=== PATIENT | female | born 1930 | race Caucasian/White ===

== ENCOUNTER 2017-01-15 08:30 | Observation (INO) | payer MEDICARE, OTHER ==
[~2017-01-15] VITALS: Ht 148.6 cm; Wt 63.8 kg
[~2017-01-15 08:30] MED LIST: ALEN1TAB48 PO; AMLO2.5T PO; ASPI1TAB69 PO; ATEN25TA PO; CALC1TAB16 PO; CALC1TAB87 PO; COQ1400C PO; FISHCAP4 PO; FLUT50SP EACH NARE; IBUP200C PO; LEVO75TA3 PO; MULT1TAB84 PO; NITR1CAP37 PO; OMEP20TA PO; ROSU40 PO; SUSTANE EACH EYE; VALS1TAB70 PO; VITA500030 CHEW; ZYRT10CA PO
[2017-01-15 08:35] VITALS: BP 116/55; PULSE 106; RESP 19; TEMP 99.3; O2SAT 98
[2017-01-15] MEDS ORDERED: SODIUM CHLORID 0.9% 500 ML INJ 500 ML IV ONE (08:45)
[2017-01-15] MEDS ORDERED: SODIUM CHLORIDE 0.9% FLUSH 10 ML FLUSH IVF PRN (08:45)
--- NOTE | 2017-01-15 08:52 | PD ---
HPI Chief Complaint: Neuro Symptoms/ Deficits Time Seen by Provider: 08:43 Travel History International Travel<30 days: No Contact w/Intl Traveler<30days: No Traveled to known affect area: No History of Present Illness HPI Patient is an 86-year-old female with history of COPD, hypertension, hyperlipidemia, hypothyroidism, GERD, presents to emergency room complaints of generalized weakness. Patient reports that she has not been feeling well for the past 2 days, reports overall generalized weakness. Patient reports that last night, symptoms progressed and she lost her appetite and could not finish her dinner. Patient reports that this morning, she woke up and felt so weak, she could not get up to use the bathroom. Patient reports that she called her daughter, her daughter was concerned as patient appeared to have "garbling speech" and reports that she did not make any sense. Daughter did call patient' s neighbor to have her checked up on, reports the patient had expressive aphasia and was incontinent of urine and stool in bed. When EMS arrived on scene, patient was covered in stool and urine, reports that she initially had expressive aphasia which improved over time. Reports the patient is back to her baseline, patient with no neurological deficits at this time. It was unsure when symptoms started, symptoms did resolve upon presentation to the ER. Patient with no headache or dizziness at this time. Patient with no chest pain or shortness of breath, no abdominal pain or nausea or vomiting. Patient with no fever or chills, she reports overall generalized weakness. PFSH Past Medical History Heart Rhythm Problems: No Cancer: Yes (SKIN CA) Cardiac Catheterization: No Cardiovascular Problems: Yes (RAPID HEART RATE, MITRAL VALVE PROLAPSE) High Cholesterol: Yes Congestive Heart Failure: No Diabetes: No GERD: Yes Hiatal Hernia: Yes Hypertension: Yes Immune Disorder: No Psychiatric: No Reproductive: No Respiratory: Yes (COPD) Sleep Apnea: Yes Thyroid Disease: Yes (HYPOTHYROID) Past Surgical History Abdominal Surgery: No (HYSTERECTOMY, APENDECTOMY) Appendectomy: Yes Coronary Artery Bypass Graft: No Gynecologic Surgery: Yes Hysterectomy: Yes Other Surgery: Yes Family History Family Myocardial Infarction: Yes (mother @ 62 from [place]) Social History Alcohol Use: Yes (ONE GLASS WINE DAILY) Tobacco Use: No Substance Use: No Allergies-Medications (Allergen,Severity, Reaction): Coded Allergies: ciprofloxacin (Unverified Allergy, Severe, Cramping, 11/21/16) cortisone (Unverified Allergy, Severe, RASH, 11/21/16) hydrochlorothiazide (Unverified Allergy, Severe, RASH, 11/21/16) triamterene (Unverified Allergy, Severe, RASH, 11/21/16) Reported Meds & Prescriptions Reported Meds & Active Scripts Active Reported [place]-3 ([place]-3 Fatty Acids) 1,000 Mg Capsule Ocuvite (Multiple Vitamins W/ Minerals) 1 Tab 1 Tab PO DAILY Calcium Carbonate 500 Mg Calcium (1250 Mg) Tab 1,250 Mg PO DAILY 1,250 mg calcium carbonate (500 mg elemental calcium) Vitamin D3 (Cholecalciferol) 5,000 Unit Cap 5,000 Units PO DAILY Multiple Vitamin 1 Tab 1 Tab PO DAILY Aspirin Adult Low Strength (Aspirin) 81 Mg Tabdr 81 Mg PO DAILY Crestor (Rosuvastatin Calcium) 40 Mg Tab 20 Mg PO DAILY Ibuprofen 200 Mg Cap 200 Mg PO DIRECTED PRN Atenolol 25 Mg Tab 25 Mg PO DAILY Amlodipine (Amlodipine Besylate) 2.5 Mg Tab 2.5 Mg PO DAILY Valsartan 320 Mg Tab 320 Mg PO DAILY Omeprazole 20 Mg Tab 20 Mg PO DAILY Fish Oil + D3 (Fish Oil-Cholecalciferol) 1,200-1,000 Mg-Unit Cap 1 Cap PO DAILY Levothyroxine (Levothyroxine Sodium) 75 Mcg Tab 75 Mcg PO DAILY Fluticasone Nasal [place] 50 Mcg/Act Naspr 50 Mcg EACH NARE BID 50 mcg/spray Calcium Citrate-Vitamin D 315-200 Mg-Unit Tab 1 Tab PO DAILY [[place]] 1 Drop EACH EYE DAILY Review of Systems General / Constitutional: No: Fever Eyes: No: Visual changes HENT: No: Headaches Cardiovascular: No: Chest Pain or Discomfort Respiratory: No: Shortness of Breath Gastrointestinal: No: Nausea, Vomiting, Abdominal Pain Genitourinary: No: Dysuria Musculoskeletal: No: Pain Skin: No Rash Neurologic: Positive: Weakness, Change in Mentation, Slurred Speech, No: Dizziness, Headache Psychiatric: No: Depression Endocrine: No: Polydipsia Hematologic/Lymphatic: No: Easy Bruising Physical Exam Narrative GENERAL: mild distress SKIN: Focused skin assessment warm/dry. HEAD: Atraumatic. Normocephalic. EYES:No injection or drainage. ENT: No nasal bleeding or discharge. Mucous membranes pink and moist. NECK: Trachea midline. No JVD. CARDIOVASCULAR: Regular rate and rhythm. No murmur appreciated. RESPIRATORY: No accessory muscle use. Clear to auscultation. Breath sounds equal bilaterally. GASTROINTESTINAL: Abdomen soft, non-tender, nondistended. Hepatic and splenic margins not palpable. MUSCULOSKELETAL: No obvious deformities. No clubbing. No cyanosis. No edema. NEUROLOGICAL: Awake and alert. No obvious cranial nerve deficits. Motor grossly within normal limits. Normal speech. PSYCHIATRIC: Appropriate mood and affect; insight and judgment normal. Data Data Last Documented VS Vital Signs Date Time Temp Pulse Resp B/P (MAP) Pulse Ox O2 Delivery O2 Flow Rate FiO2 01/15/17 08:35 99.3 106 19 116/55 (75) 98 Room Air Orders Orders Electrocardiogram (01/15/17 08:43) Prothrombin Time / Inr (Pt) (01/15/17 08:43) Act Partial Throm Time (Ptt) (01/15/17 08:43) Complete Blood Count With Diff (01/15/17 08:43) Comprehensive Metabolic Panel (01/15/17 08:43) Creatine Kinase (Cpk) (01/15/17 08:43) Troponin I (01/15/17 08:43) Urinalysis - C+S If Indicated (01/15/17 08:43) Ct Brain W/O Iv Contrast(Rout) (01/15/17 08:43) Chest, Single Ap (01/15/17 08:43) Ecg Monitoring (01/15/17 08:43) Iv Access Insert/Monitor (01/15/17 08:43) Oximetry (01/15/17 08:43) Cath For Specimen (01/15/17 08:43) Blood Glucose (01/15/17 08:43) Sodium Chloride 0.9% Flush (Ns Flush) (01/15/17 08:45) Sodium Chlorid 0.9% 500 Ml Inj (Ns 500 M (01/15/17 08:45) Aspirin Chew (Aspirin Chew) (01/15/17 10:15) Urine Culture (01/15/17 08:50) Ceftriaxone Inj (Rocephin Inj) (01/15/17 11:00) Admit Order (Ed Use Only) (01/15/17 10:50) Labs Laboratory Tests Test 01/15/17 08:50 01/15/17 09:00 White Blood Count 8.4 TH/MM3 Red Blood Count 4.11 MIL/MM3 Hemoglobin 12.4 GM/DL Hematocrit 35.3 % Mean Corpuscular Volume 85.8 FL Mean Corpuscular Hemoglobin 30.1 PG Mean Corpuscular Hemoglobin Concent 35.1 % Red Cell Distribution Width 14.8 % Platelet Count 193 TH/MM3 Mean Platelet Volume 9.7 FL Neutrophils (%) (Auto) 80.8 % Lymphocytes (%) (Auto) 12.2 % Monocytes (%) (Auto) 5.6 % Eosinophils (%) (Auto) 1.0 % Basophils (%) (Auto) 0.4 % Neutrophils # (Auto) 6.8 TH/MM3 Lymphocytes # (Auto) 1.0 TH/MM3 Monocytes # (Auto) 0.5 TH/MM3 Eosinophils # (Auto) 0.1 TH/MM3 Basophils # (Auto) 0.0 TH/MM3 CBC Comment DIFF FINAL Differential Comment Urine Color YELLOW Urine Turbidity HAZY Urine pH 5.5 Urine Specific Bureau 1.013 Urine Protein 30 mg/dL Urine Glucose (UA) NEG mg/dL Urine Ketones 10 mg/dL Urine Occult Blood NEG Urine Nitrite NEG Urine Bilirubin NEG Urine Urobilinogen LESS THAN 2.0 MG/DL Urine Leukocyte Esterase NEG Urine RBC 1 /hpf Urine WBC 2 /hpf Urine Squamous Epithelial Cells 1 /hpf Urine Bacteria OCC /hpf Urine Mucus MOD /lpf Microscopic Urinalysis Comment CATH-CULTURE IND Blood Urea Nitrogen 12 MG/DL Creatinine 0.81 MG/DL Random Glucose 115 MG/DL Total Protein 7.6 GM/DL Albumin 3.6 GM/DL Calcium Level 9.1 MG/DL Alkaline Phosphatase 61 U/L Aspartate Amino Transf (AST/SGOT) 16 U/L Alanine Aminotransferase (ALT/SGPT) 14 U/L Total Bilirubin 1.0 MG/DL Sodium Level 131 MEQ/L Potassium Level 3.7 MEQ/L Chloride Level 98 MEQ/L Carbon Dioxide Level 22.5 MEQ/L Anion Gap 11 MEQ/L Estimat Glomerular Filtration Rate 67 ML/MIN Total Creatine Kinase 41 U/L Troponin I LESS THAN 0.02 NG/ML Prothrombin Time 11.3 SEC Prothromb Time International Ratio 1.0 RATIO Activated Partial Thromboplast Time 23.8 SEC MDM Medical Decision Making Medical Screen Exam Complete: Yes Emergency Medical Condition: Yes Medical Record Reviewed: Yes Interpretation(s) EKG at 0949: Normal sinus rhythm at 94 bpm, QT/QTc 356/408, nonspecific changes Vital Signs Date Time Temp Pulse Resp B/P (MAP) Pulse Ox O2 Delivery O2 Flow Rate FiO2 01/15/17 08:35 99.3 106 19 116/55 (75) 98 Room Air Differential Diagnosis Differential includes CVA, TIA, ACS, arrhythmia, electrolyte abnormality Narrative Course Patient is an 86-year-old female who presents to emergency room with complaints of generalized weakness for the past 2-3 days. Reports that her symptoms were worse this morning and that she was unable to ambulate and get out of bed to use the restroom. She does use a walker at baseline, she called her daughter this morning who was concerned as patient appeared to have speech deficits. Patient's neighbor to check on patient and confirmed this, EMS was called. EMS reports the patient did have expressive aphasia initially upon their evaluation, she has complete resolution of symptoms at this time. Patient's vital signs are stable, patient was placed on a threat monitoring analyst upon arrival to the emergency room. CT of the head was ordered, labs work was ordered. Plan to monitor patient on a threat monitoring analyst. Vital Signs Date Time Temp Pulse Resp B/P (MAP) Pulse Ox O2 Delivery O2 Flow Rate FiO2 01/15/17 08:35 99.3 106 19 116/55 (75) 98 Room Air Laboratory Tests Test 01/15/17 08:50 01/15/17 09:00 White Blood Count 8.4 TH/MM3 (4.0-11.0) Red Blood Count 4.11 MIL/MM3 (4.00-5.30) Hemoglobin 12.4 GM/DL (11.6-15.3) Hematocrit 35.3 % (35.0-46.0) Mean Corpuscular Volume 85.8 FL (80.0-100.0) Mean Corpuscular Hemoglobin 30.1 PG (27.0-34.0) Mean Corpuscular Hemoglobin Concent 35.1 % (32.0-36.0) Red Cell Distribution Width 14.8 % (11.6-17.2) Platelet Count 193 TH/MM3 (150-450) Mean Platelet Volume 9.7 FL (7.0-11.0) Neutrophils (%) (Auto) 80.8 % (16.0-70.0) Lymphocytes (%) (Auto) 12.2 % (9.0-44.0) Monocytes (%) (Auto) 5.6 % (0.0-8.0) Eosinophils (%) (Auto) 1.0 % (0.0-4.0) Basophils (%) (Auto) 0.4 % (0.0-2.0) Neutrophils # (Auto) 6.8 TH/MM3 (1.8-7.7) Lymphocytes # (Auto) 1.0 TH/MM3 (1.0-4.8) Monocytes # (Auto) 0.5 TH/MM3 (0-0.9) Eosinophils # (Auto) 0.1 TH/MM3 (0-0.4) Basophils # (Auto) 0.0 TH/MM3 (0-0.2) CBC Comment DIFF FINAL Differential Comment Urine Color YELLOW (YELLW/STRAW) Urine Turbidity HAZY (CLEAR) Urine pH 5.5 (5.0-8.5) Urine Specific Bureau 1.013 (1.002-1.035) Urine Protein 30 mg/dL (NEG-TRACE) Urine Glucose (UA) NEG mg/dL (NEG) Urine Ketones 10 mg/dL (NEG) Urine Occult Blood NEG (NEG) Urine Nitrite NEG (NEG) Urine Bilirubin NEG (NEG) Urine Urobilinogen LESS THAN 2.0 MG/DL (LESS Urine Leukocyte Esterase NEG (NEG) Urine RBC 1 /hpf (0-3) Urine WBC 2 /hpf (0-5) Urine Squamous Epithelial Cells 1 /hpf (0-5) Urine Bacteria OCC /hpf (NONE) Urine Mucus MOD /lpf (OCC) Microscopic Urinalysis Comment CATH-CULTURE IND Blood Urea Nitrogen 12 MG/DL (7-18) Creatinine 0.81 MG/DL (0.50-1.00) Random Glucose 115 MG/DL (74-106) Total Protein 7.6 GM/DL (6.4-8.2) Albumin 3.6 GM/DL (3.4-5.0) Calcium Level 9.1 MG/DL (8.5-10.1) Alkaline Phosphatase 61 U/L (45-117) Aspartate Amino Transf (AST/SGOT) 16 U/L (15-37) Alanine Aminotransferase (ALT/SGPT) 14 U/L (10-53) Total Bilirubin 1.0 MG/DL (0.2-1.0) Sodium Level 131 MEQ/L (136-145) Potassium Level 3.7 MEQ/L (3.5-5.1) Chloride Level 98 MEQ/L (98-107) Carbon Dioxide Level 22.5 MEQ/L (21.0-32.0) Anion Gap 11 MEQ/L (5-15) Estimat Glomerular Filtration Rate 67 ML/MIN (>89) Total Creatine Kinase 41 U/L (26-192) Troponin I LESS THAN 0.02 NG/ML Prothrombin Time 11.3 SEC (9.8-11.6) Prothromb Time International Ratio 1.0 RATIO Activated Partial Thromboplast Time 23.8 SEC (24.3-30.1) Last Impressions Head CT 01/15/17842 Signed Impressions: Service Date/Time: Sunday, January 15, 2017 09:22 - CONCLUSION: No acute intracranial disease. Jean Carlos Noble MD Chest X-Ray 01/15/17842 Signed Impressions: Service Date/Time: Sunday, January 15, 2017 09:38 - CONCLUSION: Mild interstitial prominence. Thaddeus Desai MD FACR Patient with most likely TIA symptoms as she has complete resolution of symptoms at this time. Patient is not a lytic candidate as it was unknown last time of onset of symptoms. Patient with complete resolution of symptoms at this time. Patient was given aspirin, will admit to medicine service. Case reviewed with Dr. Caraballo who accepts pt to his service Diagnosis Primary Impression: TIA (transient ischemic attack) Qualified Codes: G45.9 - Transient cerebral ischemic attack, unspecified Additional Impression: UTI (urinary tract infection) Qualified Codes: N30.00 - Acute cystitis without hematuria Admitting Information Admitting Physician Requests: Observation Francia Purvis DO Jan 15, 2017 08:52
[2017-01-15 09:24] LABS: AUTOMATED NEUTROPHIL # 6.8 TH/MM3 (1.8-7.7); BASOPHIL % 0.4 % (0.0-2.0); EOSINOPHIL # 0.1 TH/MM3 (0-0.4); HEMATOCRIT 35.3 % (35.0-46.0); HEMO FLAGS DIFF FINAL; LYMPH % 12.2 % (9.0-44.0); MEAN CELL VOLUME 85.8 FL (80.0-100.0); MEAN CORPUSCULAR HEMOGLOBIN 30.1 PG (27.0-34.0); MEAN CORPUSCULAR HGB CONC 35.1 % (32.0-36.0); MONO % 5.6 % (0.0-8.0); NEUT % 80.8 % (16.0-70.0); PLATELET COUNT 193 TH/MM3 (150-450); RED BLOOD COUNT 4.11 MIL/MM3 (4.00-5.30); RED CELL DISTRIBUTION WIDTH 14.8 % (11.6-17.2); WHITE BLOOD COUNT 8.4 TH/MM3 (4.0-11.0)
[2017-01-15 09:29] LABS: APTT (PATIENT) 23.8 SEC (24.3-30.1); PROTHROMBIN TIME - PATIENT 11.3 SEC (9.8-11.6)
--- NOTE | 2017-01-15 09:32 | RADRPT ---
EXAM DATE/TIME: 01/15/2017 09:22 [facility] COMPARISON: CT BRAIN W/O CONTRAST, June 05, 2015, 15:37. INDICATIONS : Altered mental status. RADIATION DOSE: 56.86 CTDIvol (mGy) MEDICAL HISTORY : Cardiovascular disease. Hypertension. SURGICAL HISTORY : Appendectomy. Hysterectomy. ENCOUNTER: Initial ACUITY: 1 day PAIN SCALE: 0/10 LOCATION: cranial TECHNIQUE: Multiple contiguous axial images were obtained of the head. Using automated exposure control and adj ustment of the mA and/or kV according to patient size, radiation dose was kept as low as reasonably a chievable to obtain optimal diagnostic quality images. DICOM format image data is available electro nically for review and comparison. FINDINGS: CEREBRUM: The ventricles are normal for age. No evidence of midline shift, mass lesion, hemorrhage or acute in farction. No extra-axial fluid collections are seen. POSTERIOR FOSSA: The cerebellum and brainstem are intact. The 4th ventricle is midline. The cerebellopontine angle i s unremarkable. EXTRACRANIAL: The visualized portion of the orbits is intact. SKULL: The calvaria is intact. No evidence of skull fracture. CONCLUSION: No acute intracranial disease. Jean Carlos Noble MD on January 15, 2017 at 9:28 Board Certified Radiologist. This report was verified electronically.
[2017-01-15] MEDS ORDERED: CALC12502 PO (09:35)
[2017-01-15] MEDS ORDERED: OCUVTAB PO (09:35)
[2017-01-15] MEDS ORDERED: MULTTAB67 PO (09:35)
[2017-01-15] MEDS ORDERED: ASPI1TAB91 PO (09:35)
[2017-01-15] MEDS ORDERED: OMEG10004 (09:35)
[2017-01-15] MEDS ORDERED: CHOL5000 PO (09:35)
[2017-01-15 09:43] LABS: ALT (GPT) 14 U/L (10-53); ANION GAP 11 MEQ/L (5-15); AST (GOT) 16 U/L (15-37); BICARBONATE 22.5 MEQ/L (21.0-32.0); BLOOD UREA NITROGEN 12 MG/DL (7-18); CHLORIDE 98 MEQ/L (98-107); GLOMERULAR FILTRATION RATE 67 ML/MIN (>89); POTASSIUM 3.7 MEQ/L (3.5-5.1); SODIUM (NA) 131 MEQ/L (136-145)
[2017-01-15 09:48] LABS: ALKALINE PHOSPHATASE 61 U/L (45-117)
--- NOTE | 2017-01-15 09:48 | RADRPT ---
EXAM DATE/TIME: 01/15/2017 09:38 [facility] COMPARISON: CHEST SINGLE AP, February 10, 2015, 12:39. INDICATIONS : Possible cva. MEDICAL HISTORY : Cardiovascular disease. Hypertension SURGICAL HISTORY : None. ENCOUNTER: Initial ACUITY: 1 day PAIN SCORE: 0/10 LOCATION: Bilateral chest FINDINGS: Mild interstitial prominence is evident. Cardiac size is appropriate. There is no alveolar consolid ation pneumothorax. CONCLUSION: Mild interstitial prominence. Thaddeus Desai MD FACR on January 15, 2017 at 9:45 Board Certified Radiologist. This report was verified electronically.
[2017-01-15 10:05] LABS: BACTERIA, URINE OCC /hpf; BLOOD, URINE NEG (NEG); CREATINE KINASE 41 U/L (26-192); GLUCOSE,URINE NEG (NEG); KETONE, URINE 10 mg/dL (NEG); MUCUS URINE MOD /lpf (OCC); NITRITE,URINE NEG (NEG); PH, URINE 5.5 (5.0-8.5); SQUAMOUS EPITHELIAL CELL URINE 1 /hpf (0-5); URINE COLOR YELLOW (YELLW/STRAW)
[2017-01-15 10:08] LABS: COMMENT (UR) CATH-CULTURE IND; CULTURE IF INDICATED CATH CULTURE IND
[2017-01-15] MEDS ORDERED: ASPIRIN 81 MG CHEW TAB CHEW ONE (10:15)
[2017-01-15] MEDS ORDERED: cefTRIAXone INJ 1,000 MG in SODIUM CHLORIDE 0.9% INJ 100 ML IV ONE (11:00)
[2017-01-15] MEDS ORDERED: SODIUM CHLORIDE 0.9% FLUSH 10 ML FLUSH IV FLUSH PRN (11:15)
[2017-01-15] MEDS ORDERED: MAGNESIUM HYDROXIDE SUSP 30 ML CUP PO PRN (11:15)
[2017-01-15] MEDS ORDERED: [UNRECOGNIZED DRUG - OTHER] EACH EYE SCH (11:15)
[2017-01-15] MEDS ORDERED: ONDANSETRON HCL 4 MG/2 ML VIAL IVP PRN (11:15)
[2017-01-15] MEDS ORDERED: NALOXONE HCL 0.4 MG/ML AMP IV PUSH PRN (11:15)
[2017-01-15] MEDS ORDERED: ACETAMINOPHEN 325 MG TAB PO PRN (11:15)
[2017-01-15] MEDS ORDERED: ENALAPRILAT 1.25 MG/ML VIAL IV PUSH PRN (11:15)
--- NOTE | 2017-01-15 11:30 | HHI.HP ---
HPI Service [facility] Hospitalists Primary Care Physician Barber Catalan Jr, MD Admission Diagnosis TIA, UTI Chief Complaint: slurred speech Travel History International Travel<30 Days: No Contact w/Intl Traveler <30 Da: No Traveled to Known Affected Are: No History of Present Illness Ms. Cadena is a pleasant 86 y/o WF with COPD, hypertension, hyperlipidemia, hypothyroidism, and GERD who presented to the ED at [facility] [place] with complaints of slurred speech and generalized weakness. Patient reports that two days ago she felt normal but did not sleep well that night, she would only sleep for less than two hours and wake up for a bit and this occurred on and off. She was not feeling well yesterday and reports overall generalized weakness. Last night she lost her appetite and could not finish her dinner. Patient reports that this morning, she woke up and felt very weak and could not get up to use the bathroom. Patient reports that she called her daughter, her daughter was concerned as patient appeared to have "garbled speech" and reports that she did not make any sense. Daughter did call patient's neighbor to have her checked up on her and the pt reportedly had expressive aphasia and was incontinent of urine and stool in bed per the ED documentation. The pt does not recall much of this. Per the ED documentation, when EMS arrived on scene, patient was covered in stool and urine, reports that she initially had expressive aphasia which improved over time. The patient is reportedly back to her baseline, patient with no neurological deficits at this time. Patient denies any headache or dizziness at this time. Patient with no chest pain or shortness of breath, no abdominal pain or nausea or vomiting. Patient with no fever or chills. She denies any weakness, dizziness or dropping objects. She had a mechanical fall around 4 months ago going through a circular door. She does report some overall increased stress over financial issues and family issues. Review of Systems Respiratory: DENIES: Shortness of breath Cardiovascular: DENIES: Chest pain, Lower Extremity Edema Gastrointestinal: DENIES: Abdominal pain, Constipation Integumentary: DENIES: Rash Neurologic: COMPLAINS OF: Speech Problems, DENIES: Headache, Localized weakness Psychiatric: COMPLAINS OF: Confusion Past Family Social History Past Medical History Allergic rhinitis Cervical radiculopathy COPD Diabetes mellitus, type 2 DDD, lumbar spine HTN GERD Hx of H. pylori infection Hyperlipidemia Hypothyroidism Hypokalemia/Hyponatremia HENRI Mitral valve prolapse Tricuspid regurg Hx of SCC Vitamin D deficiency Varicose veins 2D echo (02/04/2014) - Estimated EF 68% - Calcified mitral annulus - Mild left atrial enlargement - Trivial mitral, tricuspid and pulmonic insufficiency - Minimal thickening of the aortic valve but no significant valvular dysfunction. Past Surgical History Appendectomy Hemorrhoidectomy Hernia repair Hysterectomy Tonsillectomy Colonoscopy (10/19/2008) --> sessile polyp in the rectum, diverticular scattered throughout the colon. Pathology revealed mild chronic colitis and a tubulovillous adenoma. Reported Medications -Aspirin 81 Mg PO DAILY --Crestor 10 Mg PO DAILY -Atenolol 25 Mg PO DAILY -Amlodipine 2.5 Mg PO DAILY -Valsartan 320 Mg PO DAILY -Omeprazole 20 Mg PO DAILY -Fish Oil + D3 (Fish Oil-Cholecalciferol) 1,200-1,000 Mg-Unit Cap 1 Cap PO DAILY -Levothyroxine 75 Mcg PO DAILY -Fluticasone Nasal [place] 50 Mcg/Act Naspr 50 Mcg EACH NARE BID 50 mcg/spray Calcium Citrate-Vitamin D 315-200 Mg-Unit Tab 1 Tab PO DAILY [Sustane] 1 Drop EACH EYE DAILY Ibuprofen 200 Mg Cap 200 Mg PO DIRECTED PRN [place]-3 ([place]-3 Fatty Acids) 1,000 Mg Capsule Ocuvite (Multiple Vitamins W/ Minerals) 1 Tab 1 Tab PO DAILY Calcium Carbonate 500 Mg Calcium (1250 Mg) Tab 1,250 Mg PO DAILY 1,250 mg calcium carbonate (500 mg elemental calcium) Vitamin D3 (Cholecalciferol) 5,000 Unit Cap 5,000 Units PO DAILY Multiple Vitamin 1 Tab 1 Tab PO DAILY Allergies: Coded Allergies: ciprofloxacin (Unverified Allergy, Severe, Cramping, 11/21/16) cortisone (Unverified Allergy, Severe, RASH, 11/21/16) hydrochlorothiazide (Unverified Allergy, Severe, RASH, 11/21/16) triamterene (Unverified Allergy, Severe, RASH, 11/21/16) Family History Father with hx of CAD/DC Daughter with hx of breast cancer, throat cancer and thyroid cancer Social History Hx of tobacco use, quit 50+ years ago Occasional alcohol use Pt is , her around 1.5 years ago Pt is from [place], [place] and moved down to [place] with her . Her daughter, Zuhair, in [place]. Another daughter, Liseth, lives in [place], [place]. Pt lives alone and does most of her ALDs Pt still drives. Physical Exam Vital Signs Vital Signs Date Time Temp Pulse Resp B/P (MAP) Pulse Ox O2 Delivery O2 Flow Rate FiO2 01/15/17 08:35 99.3 106 19 116/55 (75) 98 Room Air Physical Exam GENERAL: This is a well-nourished, well-developed patient, in no apparent distress. HEENT: Atraumatic. Normocephalic. No temporal or scalp tenderness. No scleral icterus. Airway patent. NECK: Trachea midline, supple, nontender. CARDIO: Regular. RESP: CTA bilaterally. No wheezes, rales, or rhonchi. ABD:+BS, soft, non-tender, nondistended. No hepato-splenomegaly, or palpable masses. No guarding. EXT: Extremities without clubbing, cyanosis, or edema. NEURO: Awake and alert. Motor and sensory grossly within normal limits. Normal speech. Laboratory Laboratory Tests Test 01/15/17 08:50 01/15/17 09:00 White Blood Count 8.4 Red Blood Count 4.11 Hemoglobin 12.4 Hematocrit 35.3 Mean Corpuscular Volume 85.8 Mean Corpuscular Hemoglobin 30.1 Mean Corpuscular Hemoglobin Concent 35.1 Red Cell Distribution Width 14.8 Platelet Count 193 Mean Platelet Volume 9.7 Neutrophils (%) (Auto) 80.8 Lymphocytes (%) (Auto) 12.2 Monocytes (%) (Auto) 5.6 Eosinophils (%) (Auto) 1.0 Basophils (%) (Auto) 0.4 Neutrophils # (Auto) 6.8 Lymphocytes # (Auto) 1.0 Monocytes # (Auto) 0.5 Eosinophils # (Auto) 0.1 Basophils # (Auto) 0.0 CBC Comment DIFF FINAL Differential Comment Urine Color YELLOW Urine Turbidity HAZY Urine pH 5.5 Urine Specific [place] 1.013 Urine Protein 30 Urine Glucose (UA) NEG Urine Ketones 10 Urine Occult Blood NEG Urine Nitrite NEG Urine Bilirubin NEG Urine Urobilinogen LESS THAN 2.0 Urine Leukocyte Esterase NEG Urine RBC 1 Urine WBC 2 Urine Squamous Epithelial Cells 1 Urine Bacteria OCC Urine Mucus MOD Microscopic Urinalysis Comment CATH-CULTURE IND Blood Urea Nitrogen 12 Creatinine 0.81 Random Glucose 115 Total Protein 7.6 Albumin 3.6 Calcium Level 9.1 Alkaline Phosphatase 61 Aspartate Amino Transf (AST/SGOT) 16 Alanine Aminotransferase (ALT/SGPT) 14 Total Bilirubin 1.0 Sodium Level 131 Potassium Level 3.7 Chloride Level 98 Carbon Dioxide Level 22.5 Anion Gap 11 Estimat Glomerular Filtration Rate 67 Total Creatine Kinase 41 Troponin I LESS THAN 0.02 Prothrombin Time 11.3 Prothromb Time International Ratio 1.0 Activated Partial Thromboplast Time 23.8 Date/Time Source Procedure Growth Status 01/15/17 08:50 Urine Catheterized Urine Urine Culture Pending Received Result Diagram: 01/15/1750 01/15/17849 Imaging Last Impressions Head CT 01/15/17842 Signed Impressions: Service Date/Time: Sunday, January 15, 2017 09:22 - CONCLUSION: No acute intracranial disease. Jean Carlos Noble MD Chest X-Ray 01/15/17842 Signed Impressions: Service Date/Time: Sunday, January 15, 2017 09:38 - CONCLUSION: Mild interstitial prominence. Thaddeus Desai MD FACR Septic Shock Reassessment Heart: Regular rate and rhythm Lungs: Clear Skin: Warm Caprini VTE Risk Assessment Caprini VTE Risk Assessment: Mod/High Risk (score >= 2) Caprini Risk Assessment Model Point Value = 1 Point Value = 2 Point Value = 3 Point Value = 5 Age 41-60 Minor surgery BMI > 25 kg/m2 Swollen legs Varicose veins or History of unexplained or recurrent spontaneous Oral contraceptives or hormone replacement Sepsis (< 1 month) Serious lung disease, including pneumonia (< 1 month) Abnormal pulmonary function Acute myocardial infarction Congestive heart failure (< 1 month) History of inflammatory bowel disease Medical patient at bed rest Age 61-74 Arthroscopic surgery Major open surgery (> 45 min) Laparoscopic surgery (> 45 min) Malignancy Confined to bed (> 72 hours) Immobilizing plaster cast Central venous access Age >= 75 History of VTE Family history of VTE Factor V Leiden Prothrombin [id number] Lupus anticoagulant Anticardiolipin antibodies Elevated serum homocysteine Heparin-induced thrombocytopenia Other congenital or acquired thrombophilia Stroke (< 1 month) Elective arthroplasty Hip, pelvis, or leg fracture Acute spinal cord injury (< 1 month) Prophylaxis Regimen Total Risk Factor Score Risk Level Prophylaxis Regimen 0-1 Low Early ambulation 2 Moderate Order ONE of the following: *Sequential Compression Device (SCD) *Heparin 5000 units SQ BID 3-4 Higher Order ONE of the following medications: *Heparin 5000 units SQ TID *Enoxaparin/Lovenox 40 mg SQ daily (WT < 150 kg, CrCl > 30 mL/min) *Enoxaparin/Lovenox 30 mg SQ daily (WT < 150 kg, CrCl > 10-29 mL/min) *Enoxaparin/Lovenox 30 mg SQ BID (WT < 150 kg, CrCl > 30 mL/min) AND/OR *Sequential Compression Device (SCD) 5 or more Highest Order ONE of the following medications: *Heparin 5000 units SQ TID (Preferred with Epidurals) *Enoxaparin/Lovenox 40 mg SQ daily (WT < 150 kg, CrCl > 30 mL/min) *Enoxaparin/Lovenox 30 mg SQ daily (WT < 150 kg, CrCl > 10-29 mL/min) *Enoxaparin/Lovenox 30 mg SQ BID (WT < 150 kg, CrCl > 30 mL/min) AND *Sequential Compression Device (SCD) Assessment and Plan Problem List: (1) Slurred speech ICD Codes: R47.81 - Slurred speech Status: Acute Plan: - Pt is an 86 y/o WF with COPD, hypertension, hyperlipidemia, hypothyroidism, and GERD who presented to the ED [place] [facility] [place]15[place] with complaints of slurred speech and generalized weakness. - Patient reports that two days ago she felt normal but did not sleep well that night and yesterday was not feeling well. This morning, she woke up and felt very weak and could not get up to use the bathroom. Patient reports that she called her daughter, her daughter was concerned as patient appeared to have "garbled speech" and reports that she did not make any sense. Daughter did call patient's neighbor to have her checked up on her and the pt reportedly had expressive aphasia and was incontinent of urine and stool in bed per the ED documentation. - Pts expressive aphasia improved prior to arrival at the ED. - Pt had an abnormal UA at admission as well. Urine culture is pending. - Head CT was negative. - Check Carotid US, MRI/MRA brain - 2D echo - Holter Monitor - IVF - Telemetry - Neuro checks - Supportive care - DVT prophylaxis with SCDs (2) Confusion ICD Codes: R41.0 - Disorientation, unspecified Status: Acute Plan: - See above. (3) HTN (hypertension), benign ICD Codes: I10 - Benign hypertension Status: Chronic Plan: - Home meds resumed - Monitor (4) UTI (urinary tract infection) ICD Codes: N39.0 - Urinary tract infection, site not specified Status: Acute Plan: - Await urine culture - She was given a dose of Ceftriaxone in the ED - Hold on continuing abx at this time until urine culture results Assessment and Plan Patient examined. Assessment and plan formulated with Francia Skinner PA-C. I agree with the above. Physician Certification 2 Midnight Certification Type: Admission for Inpatient Services Order for Inpatient Services The services are ordered in accordance with Medicare regulations or non- Medicare payer requirements, as applicable. In the case of services not specified as inpatient-only, they are appropriately provided as inpatient services in accordance with the 2-midnight benchmark. Estimated LOS (days): 2 2 days is the estimated time the patient will need to remain in the hospital, assuming treatment plan goals are met and no additional complications. Post-Hospital Plan: Not yet determined Problem Qualifiers (1) UTI (urinary tract infection): Qualified Codes: N30.00 - Acute cystitis without hematuria Francia Skinner Jan 15, 2017 11:30 Huber Anderson DO Jan 20, 2017 21:42
[2017-01-15] MEDS: ASPIRIN 325 MG TAB PO SCH (12:00)
--- NOTE | 2017-01-15 12:40 | EKG ---
Date Performed: 01/15/2017 Time Performed: 08:49:44 PTAGE: 86 years EKG: Sinus rhythm MINIMAL ST DEPRESSION BORDERLINE ECG Compared to prior tracing no significant change PREVIOUS TRACING : 02/10/2015 16.22 DOCTOR: Walter Gilbert Interpretating Date/Time 01/15/2017 12:35:23
--- NOTE | 2017-01-15 13:22 | RADRPT ---
EXAM DATE/TIME: 01/15/2017 12:31 [facility] COMPARISON: No previous studies available for comparison. INDICATIONS : Transient ischemic attack. MEDICAL HISTORY : Hypercholesterolemia. Hypothyroid. Mitral valve prolaspe. Hypertension. A.F IB. COPD. GERD. Herniated disk. Skin cancer. SURGICAL HISTORY : Hysterectomy. Appendectomy. Cataracts. ENCOUNTER: Initial ACUITY: 1 day PAIN SCORE: 0/10 LOCATION: Bilateral neck PEAK SYSTOLIC VELOCITIES (cm/sec): ICA/CCA RATIO: Right: 0.9 Left: 1.1 ICA: Right: 111 Left: 120 CCA: Right: 124 Left: 112 ECA: Right: 81 Left: 55 VERTEBRAL: Right: 81 antegrade Left: 116 antegrade Elevated flow velocities and ICA/CCA ratios have been found to correlate with increased degrees of vessel stenosis, calculated as percentage of diameter relative to a normal segment of distal ICA/CCA FINDINGS: RIGHT CAROTID: There is no evidence for a hemodynamically significant carotid stenosis. Minimal int imal hyperplasia is present with scattered calcific plaque. LEFT CAROTID: There is no evidence for a hemodynamically significant carotid stenosis. Minimal inti mal hyperplasia is present with scattered calcific plaque. VERTEBRAL ARTERIES: Flow is antegrade in both vertebral arteries. MISCELLANEOUS: There are no ancillary masses or adenopathy. CONCLUSION: Negative examination for a hemodynamically significant carotid stenosis. Board Certified Radiologist. This report was verified electronically.
[2017-01-15] MEDS: NS + KCL 20 MEQ INJ 1,000 ML IV SCH ×2 (13:28→23:01)
[2017-01-15] MEDS: PANTOPRAZOLE SOD 20 MG DELAYED RELEASE TAB PO SCH (13:29)
[2017-01-15] MEDS: ATORVASTATIN 40 MG TAB PO SCH (13:30)
[2017-01-15 14:09] LABS: HEMOGLOBIN A1a 1.3 %; HEMOGLOBIN A1b 0.9 %; HEMOGLOBIN Ao 83.9 %; HEMOGLOBIN LA1C 2.4 %; HEMOGLOBIN P3 5.5 %
--- NOTE | 2017-01-15 15:31 | RADRPT ---
EXAM DATE/TIME: 01/15/2017 14:52 [facility] COMPARISON: No previous studies available for comparison. INDICATIONS : TIA. MEDICAL HISTORY : Chronic obstructive pulmonary disease. Skin cancer, Thyroid. SURGICAL HISTORY : Appendectomy. Hysterectomy. Mitral valve prolaspe. ENCOUNTER: Initial ACUITY: 1 day PAIN SCORE: 2/10 LOCATION: Bilateral cranial TECHNIQUE: Multiplanar, multisequence MRI of the brain was performed without contrast. FINDINGS: CEREBRUM: The ventricles are normal for age. No evidence of midline shift, mass lesion, hemorrhage or acute in farction. No extraaxial fluid collections are seen. The pituitary gland and suprasellar cistern are normal in configuration. WHITE MATTER: No significant signal abnormalities are seen in the white matter. POSTERIOR FOSSA: The cerebellum and brainstem are intact. The 4th ventricle is midline. The cerebellopontine angle is unremarkable. The cerebellar tonsils are normal in position. DIFFUSION IMAGING: No focal areas of restricted diffusion are seen. No evidence of acute infarction. EXTRACRANIAL: The visualized portions of the orbits and paranasal sinuses are unremarkable. CONCLUSION: Negative for acute ischemic event. Thaddeus Desai MD FACR on January 15, 2017 at 15:29 Board Certified Radiologist. This report was verified electronically.
--- NOTE | 2017-01-15 15:32 | RADRPT ---
EXAM DATE/TIME: 01/15/2017 14:52 [facility] COMPARISON: No previous studies available for comparison. INDICATIONS : TIA. Slurred speech, weakness and confusion. MEDICAL HISTORY : Chronic obstructive pulmonary disease. Skin cancer, Thyroid. SURGICAL HISTORY : Hysterectomy. Appendectomy. Mitral valve prolapse. ENCOUNTER: Initial ACUITY: 1 day PAIN SCORE: 3/10 LOCATION: Bilateral cranial Please note a normal MRA of the brain does not entirely exclude the possibility of a small aneurysm, nor the possibility of distal intracranial vessel disease. TECHNIQUE: 3D time of flight MRA was performed. Source images, multiplanar STS MIP, and 3D volume MIP reconstru ctions were reviewed. FINDINGS: There is excellent visualization of the major intracranial arteries out to the second-order branch ve ssels. There is no evidence for aneurysm, vessel truncation or stenosis, and no evidence for vascula r malformation. CONCLUSION: Negative for major branch vessel occlusion. Thaddeus Desai MD FACR on January 15, 2017 at 15:30 Board Certified Radiologist. This report was verified electronically.
[2017-01-15 16:09] VITALS: BP 110/53; PULSE 80; RESP 20; TEMP 98.4; O2SAT 96
[2017-01-15 18:28] VITALS: PULSE 78
[2017-01-15 20:00] VITALS: BP 134/63; PULSE 81; RESP 18; TEMP 97.5; O2SAT 97
[2017-01-15] MEDS: SODIUM CHLORIDE 0.9% FLUSH 10 ML FLUSH IV FLUSH SCH (21:09)
[2017-01-16] VITALS (9 sets, daily range): BP systolic 117–173; BP diastolic 57–72; PULSE 67–96; RESP 17–20; TEMP 97–98.7; O2SAT 95–98
[2017-01-16] MEDS: NS + KCL 20 MEQ INJ 1,000 ML IV SCH ×2 (01:56→01:58)
[2017-01-16] MEDS: LEVOTHYROXINE SODIUM 75 MCG TAB PO SCH (06:26)
[2017-01-16 08:47] LABS: AUTOMATED NEUTROPHIL # 4.7 TH/MM3 (1.8-7.7); BASOPHIL % 0.4 % (0.0-2.0); EOSINOPHIL # 0.5 TH/MM3 (0-0.4); HEMO FLAGS DIFF FINAL; LYMPH % 25.5 % (9.0-44.0); MEAN CELL VOLUME 86.3 FL (80.0-100.0); MEAN CORPUSCULAR HEMOGLOBIN 28.6 PG (27.0-34.0); MEAN CORPUSCULAR HGB CONC 33.1 % (32.0-36.0); MONO % 7.9 % (0.0-8.0); NEUT % 60.2 % (16.0-70.0); PLATELET COUNT 187 TH/MM3 (150-450); RED BLOOD COUNT 3.71 MIL/MM3 (4.00-5.30); RED CELL DISTRIBUTION WIDTH 14.7 % (11.6-17.2); WHITE BLOOD COUNT 7.8 TH/MM3 (4.0-11.0)
[2017-01-16] MEDS: ATENOLOL 25 MG TAB PO SCH (09:00)
[2017-01-16] MEDS: MULTIVITAMIN-OPHTHALMIC 1 TAB PO SCH (09:13)
[2017-01-16] MEDS: ATORVASTATIN 40 MG TAB PO SCH (09:14)
[2017-01-16] MEDS: PANTOPRAZOLE SOD 20 MG DELAYED RELEASE TAB PO SCH (09:14)
[2017-01-16] MEDS: ASPIRIN 325 MG TAB PO SCH (09:14)
[2017-01-16] MEDS: SODIUM CHLORIDE 0.9% FLUSH 10 ML FLUSH IV FLUSH SCH ×2 (09:14→21:00)
[2017-01-16 09:21] LABS: BICARBONATE 24.9 MEQ/L (21.0-32.0); POTASSIUM 4.3 MEQ/L (3.5-5.1)
[2017-01-16 09:30] LABS: HDL CHOLESTEROL 39.1 MG/DL (40.0-60.0)
--- NOTE | 2017-01-16 16:03 | HHI.PR ---
Subjective Remarks No new complaints. No speech or swallowing difficulties. No c/o limb weakness. Objective Vitals Vital Signs Date Time Temp Pulse Resp B/P (MAP) Pulse Ox O2 Delivery O2 Flow Rate FiO2 01/16/17 11:45 97.9 72 20 152/66 (94) 96 01/16/17 08:17 78 01/16/17 07:42 97.8 68 20 165/72 (103) 96 01/16/17 04:00 97.0 96 18 117/57 (77) 96 01/16/17 00:34 84 01/16/17 00:00 98.7 73 18 133/72 (92) 95 01/15/17 20:00 97.5 81 18 134/63 (86) 97 01/15/17 18:28 78 01/15/17 16:09 98.4 80 20 110/53 (72) 96 01/16/17 01/16/17 01/17/17 15:00 23:00 07:00 Intake Total 107 ml 720 ml Balance 107 ml 720 ml Intake Oral 720 ml IV Total 107 ml # Voids 4 Result Diagram: 01/16/17 0756 01/16/17 0756 Imaging Last Impressions Head CT 01/15/17842 Signed Impressions: Service Date/Time: Sunday, January 15, 2017 09:22 - CONCLUSION: No acute intracranial disease. Jean Carlos Noble MD Chest X-Ray 01/15/1743 Signed Impressions: Service Date/Time: Sunday, January 15, 2017 09:38 - CONCLUSION: Mild interstitial prominence. Thaddeus Desai MD FACR Head Magnetic Resonance Angiography 01/15/17 Signed Impressions: Service Date/Time: Sunday, January 15, 2017 14:52 - CONCLUSION: Negative for major branch vessel occlusion. Thaddeus Desai MD FACR Carotid Artery Ultrasound 01/15/17 Signed Impressions: Service Date/Time: Sunday, January 15, 2017 12:31 - CONCLUSION: Negative examination for a hemodynamically significant carotid stenosis. Board Certified Radiologist. This report was verified electronically. Brain MRI 01/15/17 Signed Impressions: Service Date/Time: Sunday, January 15, 2017 14:52 - CONCLUSION: Negative for acute ischemic event. Thaddeus Desai MD FACR Objective Remarks GENERAL: This is a well-nourished, well-developed patient, in no apparent distress. CARDIOVASCULAR: Regular rate and rhythm without murmurs, gallops, or rubs. RESPIRATORY: Clear to auscultation. Breath sounds equal bilaterally. No wheezes , rales, or rhonchi. GASTROINTESTINAL: Abdomen soft, non-tender, nondistended. Normal active bowel sounds MUSCULOSKELETAL: Extremities without clubbing, cyanosis, or edema. NEURO: Alert & Oriented x4 to person, place, time, situation. Moves all ext x4 A/P Problem List: (1) Slurred speech ICD Codes: R47.81 - Slurred speech Status: Acute Plan: - Pt is an 86 y/o WF with COPD, hypertension, hyperlipidemia, hypothyroidism, and GERD who presented to the ED at [facility] on 01/15/10 with complaints of slurred speech and generalized weakness. - Patient reports that two days ago she felt normal but did not sleep well that night and yesterday was not feeling well. This morning, she woke up and felt very weak and could not get up to use the bathroom. Patient reports that she called her daughter, her daughter was concerned as patient appeared to have "garbled speech" and reports that she did not make any sense. Daughter did call patient's neighbor to have her checked up on her and the pt reportedly had expressive aphasia and was incontinent of urine and stool in bed per the ED documentation. - Pts expressive aphasia improved prior to arrival at the ED. - Urine Cx --> NO growth - CT head (01/15/17) --> NO acute findings - MRI brain (01/15) --> NO acute findings - MRA brain (01/15) --> NO acute findings - b/l Carotid US (01/15) --> NO hemodynamically significant stenosis - LDL (01/16) 52 - echocardiogram --> pending - holter --> pending - telemetry --> NSR - anticipate d/c to home with HHC and home PT 01/17 - Supportive care - DVT prophylaxis with SCDs (2) Confusion ICD Codes: R41.0 - Disorientation, unspecified Status: Acute Plan: - See above. (3) HTN (hypertension), benign ICD Codes: I10 - Benign hypertension Status: Chronic Plan: - Home meds resumed - Monitor (4) UTI (urinary tract infection) ICD Codes: N39.0 - Urinary tract infection, site not specified Status: Acute Plan: - Urine Cx --> NO growth - She was given a dose of Ceftriaxone in the ED Problem Qualifiers (1) UTI (urinary tract infection): Qualified Codes: N30.00 - Acute cystitis without hematuria Huber Anderson DO Jan 16, 2017 16:03
--- NOTE | 2017-01-16 16:04 | HHI.FF ---
Face to Face Verification Diagnosis: (1) Slurred speech (2) Confusion (3) HTN (hypertension), benign (4) TIA (transient ischemic attack) Physical Therapy Order: Evaluate and Treat, Improve ambulation, Strength and gait training I have seen patient Francisca Cadena on 01/16/17. My clinical findings support the need for the requested home health care services because: Ltd mobility - disease progression Deconditioned w/ increased weakness Med compliance is questionable Limited ability to care for self Need for psychosocial assistance I certify that my clinical findings support that this patient is homebound because: Impaired cognitive ability/safety Unsafe to leave home unassisted Need for psychosocial assistance Unable to use public transportation Huber Anderson DO Jan 16, 2017 16:04
[2017-01-16] MEDS ORDERED: PILL SPLITTER OTHER PRN (16:15)
[2017-01-16] MEDS: amLODIPine BESYLATE 5 MG TAB PO SCH (16:27)
[2017-01-17 00:13] VITALS: BP 158/71; PULSE 64; RESP 17; TEMP 97.7; O2SAT 98
[2017-01-17 04:40] VITALS: BP 158/68; PULSE 66; RESP 17; TEMP 97.8; O2SAT 98
[2017-01-17] MEDS: LEVOTHYROXINE SODIUM 75 MCG TAB PO SCH (06:25)
[2017-01-17 07:50] VITALS: BP 150/68; PULSE 71; RESP 20; TEMP 98.3; O2SAT 95
[2017-01-17] MEDS: ASPIRIN 325 MG TAB PO SCH (08:27)
[2017-01-17] MEDS: SODIUM CHLORIDE 0.9% FLUSH 10 ML FLUSH IV FLUSH SCH (08:27)
[2017-01-17] MEDS: ATORVASTATIN 40 MG TAB PO SCH (08:27)
[2017-01-17] MEDS: MULTIVITAMIN-OPHTHALMIC 1 TAB PO SCH (08:28)
[2017-01-17] MEDS: PANTOPRAZOLE SOD 20 MG DELAYED RELEASE TAB PO SCH (08:28)
[2017-01-17] MEDS: amLODIPine BESYLATE 5 MG TAB PO SCH (08:28)
[2017-01-17] MEDS: ATENOLOL 25 MG TAB PO SCH (08:28)
[2017-01-17 08:33] VITALS: PULSE 72
[2017-01-17] MEDS ORDERED: INFLUENZA VIRUS VACCINE (QUADRIVALENT) 0.5 ML SYR IM ONE (10:00)
[2017-01-17 11:46] VITALS: BP 122/58; PULSE 65; RESP 20; TEMP 97.2; O2SAT 97
--- NOTE | 2017-01-17 12:12 | HHI.FF ---
Face to Face Verification Diagnosis: (1) HTN (hypertension), benign (2) TIA (transient ischemic attack) (3) Slurred speech Physical Therapy Order: Evaluate and Treat, Improve ambulation, Strength and gait training Home Health Nursing Order: Medical education Signs/symptoms of disease process Medication education-adverse effect Nursing assessment with vital signs I have seen patient Francisca Cadena on 01/17/17. My clinical findings support the need for the requested home health care services because: Deconditioned w/ increased weakness Med compliance is questionable Limited ability to care for self Need for psychosocial assistance I certify that my clinical findings support that this patient is homebound because: Impaired cognitive ability/safety Unsafe to leave home unassisted Need for psychosocial assistance Unable to use public transportation Huber Anderson DO Jan 17, 2017 12:12
[2017-01-17] MEDS ORDERED: ASPI325T PO (12:16)
--- NOTE | 2017-01-17 12:29 | HHI.PR ---
Subjective Remarks Pt has NO new complaints. Pt has been ambulating. Pt denies difficulties with speech or swallow. Pt denies difficulties with limb weakness. Pt requests discharge to home. Objective Vitals Vital Signs Date Time Temp Pulse Resp B/P (MAP) Pulse Ox O2 Delivery O2 Flow Rate FiO2 01/17/17 11:46 97.2 65 20 122/58 (79) 97 01/17/17 08:33 72 01/17/17 07:50 98.3 71 20 150/68 (95) 95 01/17/17 04:40 97.8 66 17 158/68 (98) 98 01/17/17 00:13 97.7 64 17 158/71 (100) 98 01/16/17 20:05 97.6 67 17 140/65 (90) 98 01/16/17 20:00 70 01/16/17 16:19 98.0 80 20 173/71 (105) 98 Result Diagram: 01/16/17 0756 01/16/17 0756 Imaging Last Impressions Head CT 01/15/17842 Signed Impressions: Service Date/Time: Sunday, January 15, 2017 09:22 - CONCLUSION: No acute intracranial disease. Jean Carlos Noble MD Chest X-Ray 01/15/17842 Signed Impressions: Service Date/Time: Sunday, January 15, 2017 09:38 - CONCLUSION: Mild interstitial prominence. Thaddeus Desai MD FACR Head Magnetic Resonance Angiography 01/15/17 Signed Impressions: Service Date/Time: Sunday, January 15, 2017 14:52 - CONCLUSION: Negative for major branch vessel occlusion. Thaddeus Desai MD FACR Carotid Artery Ultrasound 01/15/17 Signed Impressions: Service Date/Time: Sunday, January 15, 2017 12:31 - CONCLUSION: Negative examination for a hemodynamically significant carotid stenosis. Board Certified Radiologist. This report was verified electronically. Brain MRI 01/15/17 Signed Impressions: Service Date/Time: Sunday, January 15, 2017 14:52 - CONCLUSION: Negative for acute ischemic event. Thaddeus Desai MD FACR Objective Remarks GENERAL: This is a well-nourished, well-developed patient, in no apparent distress. CARDIOVASCULAR: Regular rate and rhythm without murmurs, gallops, or rubs. RESPIRATORY: Clear to auscultation. Breath sounds equal bilaterally. No wheezes , rales, or rhonchi. GASTROINTESTINAL: Abdomen soft, non-tender, nondistended. Normal active bowel sounds MUSCULOSKELETAL: Extremities without clubbing, cyanosis, or edema. NEURO: Alert & Oriented x4 to person, place, time, situation. Moves all ext x4 A/P Problem List: (1) Slurred speech ICD Codes: R47.81 - Slurred speech Status: Acute Plan: - Pt is an 86 y/o WF with COPD, hypertension, hyperlipidemia, hypothyroidism, and GERD who presented to the [place] [facility] [place] with complaints of slurred speech and generalized weakness. - Patient reports that two days ago she felt normal but did not sleep well that night and yesterday was not feeling well. This morning, she woke up and felt very weak and could not get up to use the bathroom. Patient reports that she called her daughter, her daughter was concerned as patient appeared to have "garbled speech" and reports that she did not make any sense. Daughter did call patient's neighbor to have her checked up on her and the pt reportedly had expressive aphasia and was incontinent of urine and stool in bed per the ED documentation. - Pts expressive aphasia improved prior to arrival at the ED. - Urine Cx --> NO growth - CT head (01/15/17) --> NO acute findings - MRI brain (01/15) --> NO acute findings - MRA brain (01/15) --> NO acute findings - b/l Carotid US (01/15) --> NO hemodynamically significant stenosis - LDL (01/16) 52 - echocardiogram --> pending - holter --> pending - Given symptoms it is possible that pt suffered a TIA, but there is NO radiographic confirmation. - Pt explains that she had NOT slept well the night prior which may have contributed. - Additionally pt was taking norvasc, metoprolol, and valsartan 320mg - I have NOT resumed the valsartan, and pt has largely normotensive. - It is possible that the pt was hypotensive at home contributing to her presenting symptoms - I have increased ASA to 325mg daily - Pt will continue on her current statin. LDL 52 - awaiting results of holter & echocardiogram, pt can f/u with PCP for results - Telemetry: NSR - discharge to home with HHC, see orders (2) Confusion ICD Codes: R41.0 - Disorientation, unspecified Status: Acute Plan: - See above. (3) HTN (hypertension), benign ICD Codes: I10 - Benign hypertension Status: Chronic Plan: - Home meds resumed - Monitor (4) UTI (urinary tract infection) ICD Codes: N39.0 - Urinary tract infection, site not specified Status: Acute Plan: - Urine Cx --> NO growth - She was given a dose of Ceftriaxone in the ED Problem Qualifiers (1) UTI (urinary tract infection): Qualified Codes: N30.00 - Acute cystitis without hematuria Huber Anderson DO Jan 17, 2017 12:29
--- NOTE | 2017-01-17 14:12 | ECHRPT ---
Indication: CVA/TIA CONCLUSIONS Normal left ventricular size. Wall thickness is normal. The left ventricular systolic function is grossly normal on limited imaging. The left atrial size is [id number]-mxdytabcsu dilated. Raau-jw-gkskxayi mitral valve regurgitation. Mitral annular calcification. The aortic valve is not well visualized. Aortic valve sclerosis is present. No aortic valve regurgitation. Mild aortic valve stenosis. There is mild to moderate tricuspid valve regurgitation. There is estimated mild pulmonary hypertension present (range 40-50 mmHg). BP: 116 / 55 HR: Rhythm: Sinus MEASUREMENTS (Male / Female) Normal Values Technical Quality:Fair 2D ECHO LV Diastolic Diameter PLAX 3.2 cm 4.2 - 5.9 / 3.9 - 5.3 cm LV Systolic Diameter PLAX 2.0 cm IVS Diastolic Thickness 0.8 cm 0.6 - 1.0 / 0.6 - 0.9 cm LVPW Diastolic Thickness 0.8 cm 0.6 - 1.0 / 0.6 - 0.9 cm LV Relative Wall Thickness 0.5 LVOT Diameter 1.4 cm Aortic Root Diameter 2.3 cm LA Systolic Diameter LX 2.1 cm 3.0 - 4.0 / 2.7 - 3.8 cm DOPPLER AV Peak Velocity 159.0 cm/s AV Peak Gradient 10.1 mmHg AV Mean Gradient 5.0 mmHg AV Velocity Time Integral 32.7 cm LVOT Peak Velocity 107.0 cm/s LVOT Peak Gradient 4.6 mmHg LVOT Velocity Time Integral 23.6 cm AV Area Cont Eq vti 1.1 cm AV Area Cont Eq pk 1.0 cm Mitral E Point Velocity 106.0 cm/s Mitral A Point Velocity 109.0 cm/s Mitral E to A Ratio 1.0 LV E' Lateral Velocity 7.7 cm/s Mitral E to LV E' Lateral Ratio 13.8 LV E' Septal Velocity 9.7 cm/s Mitral E to LV E' Septal Ratio 11.0 TR Peak Velocity 301.0 cm/s TR Peak Gradient 36.2 mmHg Right Atrial Pressure 10.0 mmHg Pulmonary Artery Systolic Pressu 46.2 mmHg Right Ventricular Systolic Press 46.2 mmHg PV Peak Velocity 43.6 cm/s PV Peak Gradient 0.8 mmHg FINDINGS LEFT VENTRICLE Normal left ventricular size. Wall thickness is normal. The left ventricular systolic function is grossly normal on limited imaging. RIGHT VENTRICLE Normal right ventricular size and systolic function. LEFT ATRIUM The left atrial size is bmhj-fj-reslanpmnz dilated. RIGHT ATRIUM The right atrial size is normal. ATRIAL SEPTUM Normal atrial septal thickness without atrial level shunting by limited color doppler interrogation. AORTA The aortic root and proximal ascending aorta are normal in size on limited imaging. MITRAL VALVE Uriu-fi-ptkwygwr mitral valve regurgitation. Mitral annular calcification. AORTIC VALVE The aortic valve is not well visualized. Aortic valve sclerosis is present. No aortic valve regurgitation. Mild aortic valve stenosis. TRICUSPID VALVE There is mild to moderate tricuspid valve regurgitation. There is estimated mild pulmonary hypertension present (range 40-50 mmHg). PULMONARY VALVE No pulmonary valve regurgitation or stenosis. VESSELS The inferior vena cava is normal in size. PERICARDIUM No pericardial effusion. Raymond Cool MD, FACC (Electronically Signed) Final Date:17 January 2017 14:11
--- NOTE | 2017-01-18 00:14 | HM ---
Date Performed: 01/15/2017 Time Performed: 18:50:00 HOOKUP DATE: 01/15/17 06:50:00 PM Mon ANALYSIS START TIME: 01/15/2017 6:55:00 PM ANALYSIS END TIME: 01/16/2017 6:59:00 PM PATIENT AGE: 86 PATIENT HEIGHT PATIENT WEIGHT DRUG LIST PATIENT DIAGNOSIS TEST NARRATIVE: The patient's average heart rate was 74 BPM. No episodes of tachycardia wer e noted. No episodes of bradycardia were noted. No pauses exceeding 2.0 seconds were noted. 3 ventricular ectopics, which represented < 1% of the total beat count, were noted. The highest vent ricular ectopic frequency occurred from 05:00 AM to 06:00 AM Tue. During this time 1 VE(s) occurred. Ventricular ectopics were observed as 3 isolated beat(s) only. No couplets or runs were noted. No supraventricular ectopics were noted. No episodes of ST depression (defined as -1.0 mm or mor e) were noted in channel 1. No episodes of ST depression (defined as -1.0 mm or more) were noted in channel 2. No episodes of ST depression (defined as -1.0 mm or more) were noted in channel 3. NO TARA RY RETURNED TEST INTERPRETATION: 1) Normal Sinus rhythm 2) No tachycardia/bradycardia noted 3) No arrhythmias noted 4) Rare PVC noted 5) No ST changes noted 6) No diary with symptoms Signed by : Sujit Carrera
== END 2017-01-17 14:37 | disposition home health service (06) ==
LOC: NEPC 08:30 → NEDA 10:51 → OBSVTOIN 11:08 → INTOOBSV 11:08 → N05B 15:31
PROVIDERS: ADMIT Hospitalist; ATTEND Hospitalist
DX: N30.00 Acute cystitis without hematuria (principal); R32 Unspecified urinary incontinence; R15.9 Full incontinence of feces; I10 Essential (primary) hypertension; J44.9 Chronic obstructive pulmonary disease, unspecified; Z23 Encounter for immunization; E03.9 Hypothyroidism, unspecified; E55.9 Vitamin D deficiency, unspecified; E11.9 Type 2 diabetes mellitus without complications; E78.5 Hyperlipidemia, unspecified; J30.9 Allergic rhinitis, unspecified; G47.33 Obstructive sleep apnea (adult) (pediatric); K21.9 Gastro-esophageal reflux disease without esophagitis; I08.1 Rheumatic disorders of both mitral and tricuspid valves; I34.1 Nonrheumatic mitral (valve) prolapse; M51.36 Other intervertebral disc degeneration, lumbar region; M54.12 Radiculopathy, cervical region; Z59.9 Problem related to housing and economic circumstances, unspecified; Z79.899 Other long term (current) drug therapy; Z87.891 Personal history of nicotine dependence; Z85.828 Personal history of other malignant neoplasm of skin
CPT/HCPCS: 70450; 70544; 70551; 71010; 80048; 80053; 80061; 81001; 82550; 83036; 84484; 85025; 85610; 85730; 87086; 93005; 93225; 93226; 93306; 93880; 96360; 96372; 97162; 99285; G0378; J0696; J3480; J7040; P9612; Q2038; 90471; 90686; G0008